=== PATIENT | male | born 1960 | race Caucasian/White ===

== ENCOUNTER 2020-08-13 07:09 | Observation (INO) | payer BC, MEDICARE ==
[2020-08-13 07:38] LABS: ABSOLUTE BASOPHILS # (AUTO) 0.2 10^3/uL (0.0-0.2); ABSOLUTE EOSINOPHILS # (AUTO) 0.2 10^3/uL (0.0-0.6); ABSOLUTE LYMPHOCYTES (AUTO) 3.1 10^3/uL (0.5-4.7); ABSOLUTE MONOCYTES (AUTO) 0.8 10^3/uL (0.1-1.4); ABSOLUTE NEUT (AUTO) 8.9 10^3/uL (1.7-8.2); BASOPHILS % (AUTO) 1.1 % (0-2); EOSINOPHILS % (AUTO) 1.7 % (0-6); HEMATOCRIT 44.9 % (37.9-51.0); HEMOGLOBIN 15.3 g/dL (13.5-17.0); LYMPHOCYTES % (AUTO) 23.6 % (13-45); MEAN CORPUSCULAR HEMOGLOBIN 30.8 pg (27.0-33.4); MEAN CORPUSCULAR HGB CONC 34.1 g/dL (32.0-36.0); MEAN CORPUSCULAR VOLUME 90 fl (80-97); MONOCYTES % (AUTO) 6.1 % (3-13); PLATELET COUNT 299 10^3/uL (150-450); RED BLOOD COUNT 4.97 10^6/uL (4.35-5.55); RED CELL DISTRIBUTION WIDTH 13.1 % (11.5-14.0); SEGMENTED NEUTROPHILS % (AUTO) 67.5 % (42-78); TOTAL CELLS COUNTED % (AUTO) 100 %; WHITE BLOOD COUNT 13.2 10^3/uL (4.0-10.5)
[2020-08-13 07:43] LABS: INTERNATIONAL RATION (INR) 0.87; PARTIAL THROMBOPLASTIN TIME 29.2 SEC (23.5-35.8)
--- NOTE | 2020-08-13 07:47 | ER Document Report ---
ED Alteplase Inc/Exc Criteria - Date/Time patient last known well: Date/Time: 720am - Inclusion Criteria: 1: Patient presented to ED within 4.5 hours of acute ischemic stroke symptom onset? -: No 2: Did baseline CT exclude intracranial hemorrhage and/or other risk factors? 3: Is the age of the patient 18 years of age or greater? : If any of the above questions are answered "NO" then stop, patient is not a candidate for Alteplase, : If all of the above questions are answered "YES" then continue with Exclusion Criteria. - Exclusion Criteria: 1: Is there evidence of intracranial hemorrhage on baseline CT? 2: Is there suspicion of subarachnoid hemorrhage (even if CT negative)? 3: Is there a history of serious head trauma, recent previous stroke or AR within 3 months? 4: Does the patient have a clinical presentation consistent with AR or post-AR pericarditis? 5: Is there history of intracranial hemorrhage? 6: On repeated measurement is Systolic BP greater than 185mmHg or Diastolic BP greater that 110 mmHg and is aggressive treatment needed to reduce blood pressure to these limits (e.g. constant infusion of an anti-hypertensive)? 7: Did the patient awake with stroke symptoms? 8: Has the patient had a lumbar puncture or an arterial puncture at a non- compressile site within 7 days? 9: With in the last 14 days did the patient have surgery or major trauma? 10: Is the patient or less than 2 weeks? 11: Was there any active bleeding or acute trauma? 12: Does the patient have intracranial neoplasm, arteriovenous malformation or aneurysm? 13: Does the patient have abnormal glucose (less than 50 or greater than 400mg/dl)? Record glucose in Comment. 14: Patient has rapidly improving symptoms at the time Alteplase is to be Administered. 15: Does the patient have any risks for bleeding, including but not limited to: a.: Current use of Coumadin with PT greater than 15 seconds or INR greater than 1.7. b.: Current use of Pradaxa (Dabigatran). c.: Heparin administereed within the past 48 hours and PTT elevated. d.: Platelet count less than 100,000/mm. e.: Major surgery or serious trauma within 14 days. f.: Gastrointestinal or gynecological urinary bleeding within 14 days. g.: Myocardial Infarction (AR) within 3 months. : If the answer to any of the above questions is "YES" then stop, the patient is not a candidate for Alteplase. : If the answer to all of the above questions is "NO" then the patient may be eligible for the Administration of Alteplase. : If the patient is noted to have seizure activity at onset of Stroke symptoms; Consult Neurologist for further evaluation. - The patient is: -: Included and is eligible to receive Alteplase. *Initiate bed placement at higher level of care* Reviewed risks & benefits of thrombolytic therapy: I have reviewed the risks and benefits of thrombolytic therapy with the patient and/or his/her family. -: Excluded and not eligible to receive Alteplase for the above exclusions. -: Excluded and not eligible to receive Alteplase for other reasons (specify in comments): - Diagnosis of TIA: -: Patient presented with transient symptoms that are now resolved and no other neurologic findings are currently present. List symptoms in comments. -: Patient is NOT a candidate for tPA. -: ____(put name in comment) has been consulted for admission and continued evaluation of risk factor assessment.
--- NOTE | 2020-08-13 07:47 | ER Document Report ---
ED NIH Stroke Scale - NIH Stroke Scale When completed:: Before Alteplase *: 1. NIH scale should be completed with appropriate accompanying assessment tools. *: 2. The NIH should reflect what the patient is capable of doing and should not be coached by the clinician. 1a. Level of Consciousness: 0=Alert;keenly responsive -: 1=Drowsy -: 2=Obtunded -: 3=Coma/unresponsive or reflex to noxious stimuli. 1a. Responses: 0 1b. Orientation Questions: a. What month is it? -: b. How old are you? -: 0=Answers both questions correctly. -: 1=Answers one question correctly or patient is intubated or has orotracheal trauma. -: 2=Answers neither question correctly. 1b. Responses: 0 1c. Response to commands: a. Open and close eyes? -: b. Therapeutic Massage Technician and release hand? -: Credit is given despite weakness. Demonstration of task is permitted. Substitute command if hands cannot be used. -: 0=Performs both tasks correctly -: 1=Performs one task correctly -: 2=Performs neither task correctly 1c. Responses: 0 2. Gaze: Establish eye contact and instruct patient to "Follow my finger" -: 0=Normal -: 1=Partial gaze palsy. Gaze is abnormal in one or both eyes, but where forced deviation or total gaze paresis is not present. -: 2=Forced deviation or total gaze paresis. 2. Responses: 0 3. Visual [place]: Sees fingers in all four quadrants. -: 0=No visual loss. -: 1=Partial hemianopsia. -: 2=Complete hemianopsia. -: 3=Bilateral hemianopsia (including Cortical blindness) 3. Responses: 0 4. Facial Movement: Instruct patient to: -: a. Show me your teeth -: b. Raise your eyebrows -: c. Close your eyes -: d. Smile -: 0=Normal symmetrical movement -: 1=Minor paralysis (flattened nasolabial fold, asymmetry on smiling). -: 2=Partial paralysis (total or near total paralysis of lower face). -: 3=Complete paralysis of upper and lower face 4. Responses: 0 5. Motor functions (left arm): Alternate sides and extend each arm with palms down (90 degrees if sitting or 45 degrees for supine). -: 0=No drift;limb holds for full 10 seconds. -: 1=Drift; limb holds but drifts down before full 10 seconds, but does not hit bed. -: 2=Some effort against gravity; limb cannot get to or maintain position. -: 3=No effort against gravity; limb falls. -: 4=No movement. -: UN=Amputation, joint fusion, explain in comments. 5. Responses (left arm): 1 5. Motor Functions (right arm): Alternate sides and extend each arm with palms down (90 degrees if sitting or 45 degrees for supine). -: 0=No drift;limb holds for full 10 seconds. -: 1=Drift; limb holds but drifts down before full 10 seconds, but does not hit bed. -: 2=Some effort against gravity; limb cannot get to or maintain position. -: 3=No effort against gravity; limb falls. -: 4=No movement. -: UN=Amputation, joint fusion, explain in comments. 5. Responses (right arm): 0 6. Motor Functions (left leg): With patient lying supine, alternate sides and extend each leg (30 degrees always while supine). -: 0=No drift, leg holds position for full 5 seconds -: 1=Drift; leg falls before full 5 seconds but does not hit bed. -: 2=Some effort against gravity, leg falls to bed but some effort against gravity. -: 3=No effort against gravity, leg falls to bed immediately. -: 4=No movement. -: UN=Amputation, joint fusion; explain in comments. 6. Responses (left leg): 1 6. Motor Functions (right leg): With patient lying supine, alternate sides and extend each leg (30 degrees always while supine). -: 0=No drift, leg holds position for full 5 seconds -: 1=Drift; leg falls before full 5 seconds but does not hit bed. -: 2=Some effort against gravity, leg falls to bed but some effort against gravity. -: 3=No effort against gravity, leg falls to bed immediately. -: 4=No movement. -: UN=Amputation, joint fusion; explain in comments. 6. Responses (right leg): 0 7. Limb Ataxia: With eyes open instruct patient to: -: a. "Touch your finger to your nose". -: b. "Touch your heel to your carlos" -: 0=Absent -: 1=Present in one limb. -: 2=Present in two limbs. -: UN=Amputation or joint fusion; explain in comments. 7. Responses: 1 7. If ataxia present choose as appropriate: Left arm 8. Sensory: Test sensation using pinprick or noxious stimuli. Test as many body parts as possible. -: 0=Normal;no sensory loss -: 1=Mile to moderate sensory loss (patient feels pin prick but is less sharp on affected side). -: 2=Severe or total sensory loss. 8. Responses: 0 9. Best Language: Instruct patient to: -: a. "Describe what you see in this picture." -: b. "Name the items in this picture." -: c. "Read these sentences." -: 0=No aphasia, normal -: 1=Mild to moderate aphasia. -: 2=Severe aphasia -: 3=Mute, global aphasia, no usable speech or auditory comprehension. 9. Responses: 0 10. Articulation, Dysarthia: Instruct patient to: -: "Read these words" or "Repeat these words" -: 0=Normal -: 1=Mild to moderate; patient may slur some words but can be understood without difficulty. -: 2=Severe; patients speech so slurred as to be unintelligible in the absence of dysphasia. -: UN=Intubated or other physical barrier, explain in comments. 10. Responses: 0 11. Extinction or inattention: 0=No abnormality -: 1= Visual, tactile, auditory, spatial, or personal inattention or extinction to bilateral simulation in one or the sensory modalities. -: 2=Profound dlemy-inattention or delmy-inattention to more than one modality; does not recognize own hand. 11. Responses: 0 Total Score: 3
--- NOTE | 2020-08-13 07:50 | ER Document Report ---
ED Dizziness/Weakness - General Chief Complaint: Dizziness Stated Complaint: DIZZINESS Time Seen by Provider: 08/13/20 07:21 Mode of Arrival: Wheelchair Information source: Patient - HPI Notes: Patient arrives by private auto from home. 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 Patient states that he went to bed approximately 9 PM last night. At that time he was normal. His is in the room and does verify this. This morning when he woke up he was weak on the left side and fell 3 times. There is been no trouble speaking or swallowing. No vision changes. He denies any pain. No abnormal sensations. No confusion. No recent trauma fevers. - Related Data Allergies/Adverse Reactions: Penicillins Allergy (Unverified 11/20/10 13:28) Past Medical History - General Information source: Patient, Relative - - Social History Smoking Status: Current Every Day Smoker Frequency of alcohol use: Occasional Drug Abuse: None Family History: Reviewed & Not Pertinent - Past Medical History Cardiac Medical History: Denies: Hx Coronary Artery Disease, Hx Heart Attack, Hx Hypertension Pulmonary Medical History: Denies: Hx Asthma, Hx Bronchitis, Hx COPD, Hx Pneumonia Neurological Medical History: Denies: Hx Cerebrovascular Accident, Hx Seizures Musculoskeletal Medical History: Reports Hx Arthritis Past Surgical History: Denies: Hx Pacemaker Review of Systems - Review of Systems Constitutional: denies: Chills, Fever Cardiovascular: denies: Chest pain, Palpitations Respiratory: denies: Cough, Short of breath -: Yes All other systems reviewed and negative Physical Exam - Vital signs Vitals: Resp Pulse Ox 23 H 100 08/13/20 07:20 08/13/20 07:20 Interpretation: Normal - General General appearance: Appears well, Alert - HEENT Head: Normocephalic, Atraumatic Eyes: Normal Pupils: PERRL - Respiratory Respiratory status: No respiratory distress Chest status: Nontender Breath sounds: Normal Chest palpation: Normal - Cardiovascular Rhythm: Regular Heart sounds: Normal auscultation Murmur: No - Abdominal Inspection: Normal Distension: No distension Bowel sounds: Normal Tenderness: Nontender Organomegaly: No organomegaly - Back Back: Normal, Nontender - Extremities General upper extremity: Normal inspection, Nontender, Normal color, Normal ROM, Normal temperature General lower extremity: Normal inspection, Nontender, Normal color, Normal ROM, Normal temperature, Normal weight bearing. No: Damien's sign - Neurological Neuro grossly intact: Yes Cognition: Normal Orientation: AAOx4 Huber Coma Scale Eye Opening: Spontaneous [place] Coma Scale Verbal: Oriented Huber Coma Scale Motor: Obeys Commands [place] Coma Scale Total: 15 Speech: Normal Motor strength normal: RUE, RLE - Psychological Associated symptoms: Normal affect, Normal mood - Skin Skin Temperature: Warm Skin Moisture: Dry Skin Color: Normal Course - Re-evaluation Re-evalutation: 08/13/20 08:56 Patient presents with woke up strokelike symptoms. He has left arm and leg weakness with some ataxia and balance problems as well. Plain head CT shows no evidence of stroke. It does show some equivocal findings for possible shunt malfunction. However patient has no headache. I did call and discussed the case with the neurologist at [facility]. He does not feel that the patient's presentation is consistent with a shunt abnormality. He feels that the patient most likely has a stroke of some kind. Patient is outside of the window for TPA due to waking up with the symptoms. Patient has symptoms that are not consistent with large vessel occlusion as well, and this was discussed with the neurologist. The neurologist at [facility], Dr. Ceja, recommends admission here with MRI and CTA. - Vital Signs Vital signs: Temp Pulse Resp BP Pulse Ox 19 115/83 100 08/13/20 08:01 08/13/20 08:01 08/13/20 08:01 - Laboratory Results Result Diagrams: 08/13/20 07:29 08/13/20 07:29 Laboratory Results Interpreted: 08/13/20 08/13/20 07:29 07:29 WBC 13.2 H Absolute Neuts (auto) 8.9 H Sodium 136.4 L Glucose 243 H AST 14 L Alkaline Phosphatase 129 H Critical Laboratory Results Reviewed: No Critical Results - Radiology Results Critical Radiology Results Reviewed: No Critical Results - EKG Interpretation by Me EKG shows normal: Sinus rhythm Rate: Normal - 85 Rhythm: NSR [place]/QRS: No: Right axis deviation, Left axis deviation Critical Care Note - Critical Care Note Total time excluding time spent on procedures (mins): 50 Comments: Approximately 50 minutes of critical care time were spent on this patient with acute CVA symptoms. This time is spent doing multiple reassessments. It is spent talking with multiple consultants. It was spent reviewing imaging and laboratory values. Discharge - Discharge Clinical Impression: CVA (cerebral vascular accident) Qualifiers: CVA mechanism: occlusion Precerebral and cerebral artery: unspecified precerebral artery Qualified Code(s): I63.20 - Cerebral infarction due to unspecified occlusion or stenosis of unspecified precerebral arteries Condition: Serious Disposition: ADMITTED INPATIENT Admitting Provider: Jessie (Hospitalist) Unit Admitted: [facility]
[2020-08-13 07:55] LABS: ALBUMIN 4.1 g/dL (3.5-5.0); ALKALINE PHOSPHATASE 129 U/L (38-126); ANION GAP 6 (5-19); ASPARTATE AMINO TRANSFERASE 14 U/L (17-59); BILIRUBIN,DIRECT 0.2 mg/dL (0.0-0.4); BILIRUBIN,TOTAL 0.6 mg/dL (0.2-1.3); BLOOD UREA NITROGEN 11 mg/dL (7-20); CALCIUM 9.7 mg/dL (8.4-10.2); CARBON DIOXIDE 28 mmol/L (22-30); CHLORIDE 102 mmol/L (98-107); GLUCOSE 243 mg/dL (75-110); POTASSIUM 4.4 mmol/L (3.6-5.0); TOTAL PROTEIN 6.9 g/dL (6.3-8.2)
--- NOTE | 2020-08-13 08:27 | RADIOLOGY REPORT (SQ) ---
EXAM DESCRIPTION: CT HEAD WITHOUT IMAGES COMPLETED DATE/TIME: 08/13/2020 7:52 am REASON FOR STUDY: left side weak COMPARISON: None. TECHNIQUE: Axial images acquired through the brain without intravenous contrast. Images reviewed wi bone, brain and subdural windows. Images stored on PACS. All CT scanners at this facility use dose modulation, iterative reconstruction, and/or weight based d osing when appropriate to reduce radiation dose to as low as reasonably achievable (ALARA). [facility]: Dose Right [facility]: CareDose [facility]: Dose Right [facility]: Teradose 4D [facility]: [employer] RADIATION DOSE: CT Rad equipment meets quality standard of care and radiation dose reduction techniq ues were employed. CTDIvol: 53.2 mGy. DLP: 1044 mGy-cm. mGy. LIMITATIONS: None. FINDINGS: VENTRICLES: The 3rd ventricle appears mildly distended. No evidence of transependymal dada w. CEREBRUM: Right frontoparietal ventricular shunt traverses the right frontal lobe with surrounding en cephalomalacia, and terminates in the midline in the region of the 3rd ventricle. Otherwise normal gr ay- white matter differentiation and attenuation. No hemorrhage. No mass. CEREBELLUM: No masses. No hemorrhage. No alteration of density. No evidence for acute infarction. EXTRAAXIAL SPACES: No fluid collections. No masses. ORBITS AND GLOBE: No intra- or extraconal masses. Normal contour of globe without masses. CALVARIUM: Right frontoparietal craniotomy without evidence of hardware complication. No acute findi ngs. PARANASAL SINUSES: No fluid or mucosal thickening. SOFT TISSUES: No mass or hematoma. OTHER: No other significant finding. IMPRESSION: Right frontoparietal ventricular shunt noting right frontal lobe encephalomalacia along the shunt tubing and a mildly prominent 3rd ventricle without evidence of transependymal flow. In th e absence of comparison imaging, the chronicity and stability of these findings remains indeterminate . EVIDENCE OF ACUTE STROKE: NO. COMMENT: Quality ID # [id number]: Final reports with documentation of one or more dose reduction techniques (e.g., Automated exposure control, adjustment of the mA and/or kV according to patient size, use of iterative reconstruction technique) TECHNICAL DOCUMENTATION: JOB ID: [id number] 2010 [employer]- All Rights Reserved Reading location - IP/workstation name: [email or web address]
[2020-08-13] MEDS ORDERED: IPRATROPIUM/ALBUTEROL 0.5-2.5 MG/3 ML AMPUL NEB PRN (10:01)
[2020-08-13] MEDS ORDERED: ONDANSETRON 4 MG TAB.RAPDIS PO PRN (10:01)
[2020-08-13] MEDS ORDERED: OXYCODONE-ACETAMINOPHEN 5-325 MG TABLET PO PRN (10:01)
[2020-08-13] MEDS ORDERED: ACETAMINOPHEN 325 MG TABLET PO PRN (10:01)
[2020-08-13] MEDS ORDERED: MAGNESIUM HYDROXIDE SUSP 30 ML UDCUP PO PRN (10:01)
--- NOTE | 2020-08-13 10:14 | PDOC H&P ---
History of Present Illness Admission Date/PCP: 08/13/20 09:15 Patient complains of: Patient initially presented to the emergency room this morning brought by his . He apparently complained of weakness of the left upper and lower extremity. He actually fell a couple of times. He was admitted for further evaluation and management for possible acute CVA. History of Present Illness: JUDY MERCADO is a 59 year old male Patient presented with above symptoms. By the time I was called he was felt that patient symptoms were outside the thrombolytic window as he had going to date last night in his usual condition and woke up this morning with the symptoms. Exact time of the onset was unknown however patient was also improving. In fact when I saw the patient the told me that he definitely was better than it was early on in the day. CT scan done shows a right frontoparietal ventricular shunt with the mildly prominent third ventricle without evidence of transependymal flow. 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 There has been no prior history of shunt infection. There was no report of difficulty speaking or swallowing, no vision changes at the most prominent symptom he had was weakness on the left side with unsteady gait when he ambulated. The ED doctor discussed with the neurologist at [facility] who suggested admission here as patient appears to be out of the TPA window. Patient is being admitted for further work-up and evaluation including CTA as well as echocardiogram Past Medical History Cardiac Medical History: Denies: Coronary Artery Disease, Myocardial Infarction, Hypertension Pulmonary Medical History: Denies: Asthma, Bronchitis, Chronic Obstructive Pulmonary Disease (COPD), Pneumonia Neurological Medical History: Reports: Other - Choroidal Cyst Denies: Seizures Musculoskeltal Medical History: Reports: Arthritis Hematology: Denies: Anemia Past Surgical History Past Surgical History: Reports: Other - Ventricular shunt Denies: Pacemaker Social History Information Source: Relative Smoking Status: Current Every Day Smoker Frequency of Alcohol Use: Rare - Advance Directive Resuscitation Status: Do Not Resuscitate - As per discussion with Myra Family History Family History: Reviewed & Not Pertinent Parental Family History Reviewed: Yes Children Family History Reviewed: Yes Sibling(s) Family History Reviewed.: Yes Medication/Allergy Home Medications: No Home Medications 08/13/20 Allergies/Adverse Reactions: Penicillins Allergy (Verified 08/13/20 09:38) Review of Systems All systems: reviewed and no additional remarkable complaints except as stated Constitutional: PRESENT: weakness. ABSENT: chills, fatigue, fever(s) Eyes: ABSENT: visual disturbances Ears: ABSENT: hearing changes Nose, Mouth, and Throat: ABSENT: mouth pain Gastrointestinal: ABSENT: abdominal pain, heartburn, nausea, vomiting Genitourinary: ABSENT: difficulty urinating Musculoskeletal: ABSENT: muscle weakness Neurological: PRESENT: abnormal gait, focal weakness, memory loss. ABSENT: abnormal speech, confusion, syncope Psychiatric: ABSENT: anxiety, depression, homidical ideation, suicidal ideation Physical Exam Vital Signs: Temp Pulse Resp BP Pulse Ox 69 17 118/88 H 100 08/13/20 09:32 08/13/20 09:32 08/13/20 09:32 08/13/20 09:32 Intake & Output 08/12/20 08/13/20 08/14/20 06:59 06:59 06:59 Weight 78.9 kg General appearance: PRESENT: no acute distress, well-developed, well-nourished Head exam: PRESENT: atraumatic, normocephalic Eye exam: PRESENT: conjunctiva pink, EOMI, PERRLA. ABSENT: scleral icterus Mouth exam: PRESENT: moist, tongue midline Neck exam: ABSENT: carotid bruit, JVD, lymphadenopathy, thyromegaly Respiratory exam: PRESENT: clear to auscultation marisa. ABSENT: rales, rhonchi, wheezes Cardiovascular exam: PRESENT: RRR, +S1, +S2. ABSENT: diastolic murmur, rubs, systolic murmur Pulses: PRESENT: normal dorsalis pedis pul Vascular exam: PRESENT: normal capillary refill GI/Abdominal exam: PRESENT: normal bowel sounds, soft. ABSENT: distended, guarding, mass, organolmegaly, rebound, tenderness Rectal exam: PRESENT: deferred Extremities exam: PRESENT: full ROM. ABSENT: calf tenderness, clubbing, pedal edema Neurological exam: PRESENT: alert, awake, oriented to person, oriented to place, oriented to time, oriented to situation, abnormal gait, other - LUE strength 3/5. ABSENT: motor sensory deficit Psychiatric exam: PRESENT: appropriate affect, normal mood. ABSENT: homicidal ideation, suicidal ideation Skin exam: PRESENT: dry, intact, warm. ABSENT: cyanosis, rash Results Laboratory Results: 08/13/20 07:29 08/13/20 07:29 08/13/20 08/13/20 07:29 07:29 WBC 13.2 H RBC 4.97 Hgb 15.3 Hct 44.9 MCV 90 MCH 30.8 MCHC 34.1 RDW 13.1 Plt Count 299 Seg Neutrophils % 67.5 Sodium 136.4 L Potassium 4.4 Chloride 102 Carbon Dioxide 28 Anion Gap 6 BUN 11 Creatinine 0.74 Est GFR ( Amer) > 60 Glucose 243 H Calcium 9.7 Total Bilirubin 0.6 AST 14 L Alkaline Phosphatase 129 H Total Protein 6.9 Albumin 4.1 08/13/20 07:29 Troponin I < 0.012 Impressions: Head CT 08/13/20 07:21 IMPRESSION: Right frontoparietal ventricular shunt noting right frontal lobe encephalomalacia along the shunt tubing and a mildly prominent 3rd ventricle without evidence of transependymal flow. In the absence of comparison imaging, the chronicity and stability of these findings remains indeterminate. EVIDENCE OF ACUTE STROKE: NO. Assessment and Plan - Diagnosis (1) CVA (cerebral vascular accident) Qualifiers: CVA mechanism: occlusion Precerebral and cerebral artery: unspecified precerebral artery Qualified Code(s): I63.20 - Cerebral infarction due to unspecified occlusion or stenosis of unspecified precerebral arteries Is this a current diagnosis for this admission?: Yes Plan: Patient presents with symptoms consistent with acute CVA. He has some mild left upper extremity weakness otherwise no acute deficits. His symptoms apparently have improved since his been in the emergency room. He does have a history of underlying BOX STACKER shunt. There is no history of hypertension. Patient does smoke about a pack a day for 40 years. There is no prior history of CVA it appears the neurologist at [facility] was consulted and suggestion is for him to be admitted to this hospital. At this time patient will be admitted to telemetry floor, [facility]. Because he has a shunt in place MRI was not obtained. Echocardiogram has been scheduled. A CTA has also been ordered as well as speech, physical and Occupational Therapy. Patient has been placed on aspirin as well as statin. For the interventions will depend on ultimate findings - Time Time Spent with patient: 25-34 minutes Medications reviewed and adjusted accordingly: Yes Anticipated Discharge Disposition: Home, Self Care Anticipated Discharge Timeframe: within 48 hours
--- NOTE | 2020-08-13 10:18 | RADIOLOGY REPORT (SQ) ---
EXAM DESCRIPTION: CTA NECK; CTA HEAD IMAGES COMPLETED DATE/TIME: 08/13/2020 9:22 am REASON FOR STUDY: left sided weakness COMPARISON: CT brain stroke alert 0741 hours, 08/13/2020 TECHNIQUE: Axial dynamic scanning technique with dynamic contrast enhancement through the extra-bridge crane operator nial carotid and vertebral arteries. Multiplanar reconstruction. 3-D MIPS and Volume-rendered imag es acquired at the workstation and saved to PACS. Images are reviewed in soft tissue, bone, lung w indows. Axial dynamic scanning technique with dynamic contrast enhancement through the intra-cranial carotid and vertebral arteries. Multiplanar reconstruction. 3-D MIPS and Volume-rendered images acquired at the workstation and saved to PACS. Images are reviewed in soft tissue, bone, lung windows. All CT scanners at this facility use dose modulation, iterative reconstruction, and/or weight based d osing when appropriate to reduce radiation dose to as low as reasonably achievable (ALARA). [facility]: Dose Right [facility]: CareDose [facility]: Dose Right [facility]: Teradose 4D [facility]: TeamLINKS CONTRAST TYPE AND DOSE: contrast/concentration: Isovue 350.00 mmol/ml; Total Contrast Delivered: 70. 0 ml; Total Saline Delivered: 75.0 ml RENAL FUNCTION: Creatinine 0.74 LIMITATIONS: None. FINDINGS: AORTIC ARCH: Normal three-vessel origin. Bilateral subclavian arteries are patent. No d issection. RIGHT CAROTIDS: Patent right common carotid artery. At the right carotid bifurcation, the internal carotid artery is occluded. No contrast enhancement o f the right cervical internal carotid artery or ICA at the skullbase. These findings are best shown on axial images 58-63 and sagittal images 23-25. Right external carotid artery branches are patent. RIGHT VERTEBRAL: Patent. No dissection. LEFT CAROTIDS: Patent common, internal and external carotid arteries. There is mixed calcific and no ncalcific plaque at the left carotid bifurcation with less than 50% stenosis proximal left ICA. . N o dissection. LEFT VERTEBRAL: Patent. No dissection. [place]: There is contrast enhancement of the right para clinoid ICA likely due to collatera l flow from the anterior communicating and posterior communicating arteries. No gross [place] stenosis, vascular malformation, or aneurysm OTHER: 3-D reconstructions confirm findings. OTHER HEAD AND NECK FINDINGS: Right frontal intraventricular drainage catheter with old frontal cran iotomy. Stable right frontal white matter low attenuation from gliosis. Enlarged heterogeneous thyr oid gland. No cervical adenopathy. Lung apices clear. Results called to Dr. 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 Cervical right ICA occluded wit h flow in the intracranial paraclinoid ICA from collateral flow. Findings called to the emergency ro om physician as above. About 50% proximal left ICA stenosis from calcific and noncalcific plaque No [place] stenosis or vascular malformation/aneurysm Right frontal craniotomy with ventricular drainage catheter and low attenuation in the frontal lobe w sharda matter and. COMMENT: Quality ID #195: Measurements of distal internal carotid diameter were used as the denomina tor for stenosis measurement. TECHNICAL DOCUMENTATION: JOB ID: [id number] Quality ID # 436: Final reports with documentation of one or more dose reduction techniques (e.g., Au tomated exposure control, adjustment of the mA and/or kV according to patient size, use of iterative reconstruction technique) 2010 [employer]- All Rights Reserved Reading location - IP/workstation name: [id number]
--- NOTE | 2020-08-13 10:18 | RADIOLOGY REPORT (SQ) ---
EXAM DESCRIPTION: CTA NECK; CTA HEAD IMAGES COMPLETED DATE/TIME: 08/13/2020 9:22 am REASON FOR STUDY: left sided weakness COMPARISON: CT brain stroke alert 0741 hours, 08/13/2020 TECHNIQUE: Axial dynamic scanning technique with dynamic contrast enhancement through the extra-armament aircraft mechanic nial carotid and vertebral arteries. Multiplanar reconstruction. 3-D MIPS and Volume-rendered imag es acquired at the workstation and saved to PACS. Images are reviewed in soft tissue, bone, lung w indows. Axial dynamic scanning technique with dynamic contrast enhancement through the intra-cranial carotid and vertebral arteries. Multiplanar reconstruction. 3-D MIPS and Volume-rendered images acquired at the workstation and saved to PACS. Images are reviewed in soft tissue, bone, lung windows. All CT scanners at this facility use dose modulation, iterative reconstruction, and/or weight based d osing when appropriate to reduce radiation dose to as low as reasonably achievable (ALARA). [facility]: Dose Right [facility]: CareDose [facility]: Dose Right [facility]: Teradose 4D [facility]: [email or web address] CONTRAST TYPE AND DOSE: contrast/concentration: Isovue 350.00 mmol/ml; Total Contrast Delivered: 70. 0 ml; Total Saline Delivered: 75.0 ml RENAL FUNCTION: Creatinine 0.74 LIMITATIONS: None. FINDINGS: AORTIC ARCH: Normal three-vessel origin. Bilateral subclavian arteries are patent. No d issection. RIGHT CAROTIDS: Patent right common carotid artery. At the right carotid bifurcation, the internal carotid artery is occluded. No contrast enhancement o f the right cervical internal carotid artery or ICA at the skullbase. These findings are best shown on axial images 58-63 and sagittal images 23-25. Right external carotid artery branches are patent. RIGHT VERTEBRAL: Patent. No dissection. LEFT CAROTIDS: Patent common, internal and external carotid arteries. There is mixed calcific and no ncalcific plaque at the left carotid bifurcation with less than 50% stenosis proximal left ICA. . N o dissection. LEFT VERTEBRAL: Patent. No dissection. [place]: There is contrast enhancement of the right para clinoid ICA likely due to collatera l flow from the anterior communicating and posterior communicating arteries. No gross [place] stenosis, vascular malformation, or aneurysm OTHER: 3-D reconstructions confirm findings. OTHER HEAD AND NECK FINDINGS: Right frontal intraventricular drainage catheter with old frontal cran iotomy. Stable right frontal white matter low attenuation from gliosis. Enlarged heterogeneous thyr oid gland. No cervical adenopathy. Lung apices clear. Results called to Dr. 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 Cervical right ICA occluded wit h flow in the intracranial paraclinoid ICA from collateral flow. Findings called to the emergency ro om physician as above. About 50% proximal left ICA stenosis from calcific and noncalcific plaque No [place] stenosis or vascular malformation/aneurysm Right frontal craniotomy with ventricular drainage catheter and low attenuation in the frontal lobe w sharda matter and. COMMENT: Quality ID #195: Measurements of distal internal carotid diameter were used as the denomina tor for stenosis measurement. TECHNICAL DOCUMENTATION: JOB ID: [id number] Quality ID # 436: Final reports with documentation of one or more dose reduction techniques (e.g., Au tomated exposure control, adjustment of the mA and/or kV according to patient size, use of iterative reconstruction technique) 2010 [employer]- All Rights Reserved Reading location - IP/workstation name: [id number]
[2020-08-13] MEDS ORDERED: ENOXAPARIN SODIUM INJ 40 MG/0.4 ML DISP.SYRIN SUBCUT SCH (11:00)
[2020-08-13] MEDS ORDERED: ASPIRIN 81 MG TABLET, ENT COATED PO SCH (11:00)
[2020-08-13] MEDS ORDERED: DOCUSATE SODIUM 100 MG CAPSULE PO SCH (11:00)
--- NOTE | 2020-08-13 12:27 | EKG REPORT ---
SEVERITY:- BORDERLINE ECG - SINUS RHYTHM PROBABLE LEFT ATRIAL ABNORMALITY : Confirmed by: Agustín Nuñez MD 13-Aug-2020 12:26:46
[2020-08-13 12:35] VITALS: BP 140/94
--- NOTE | 2020-08-13 15:37 | XCELERA REPORT ---
[address] [address] Transthoracic Echocardiogram Report Name: JUDY MERCADO Age: 59 yrs Gender: Male : 1960 Patient Status: Inpatient Patient Location: [place] [address]^A Study Date: 08/13/2020 11:18 AM Height: 70 in Weight: 173 lb BSA: 2.0 m2 Procedure: A complete two-dimensional transthoracic echocardiogram was performed (2D, M-mode, spectral and color flow Doppler). Reason For Study: Acute CVA Ordering Physician: ANGELA WHITLEY Performed By: Trinidad Marrufo Interpretation Summary LEFT VENTRICLE: LV Systolic function: LVEF is felt to be within normal limits. Best estimate is approximately LVEF is 60 to 65%. LV Diastolic Function: Grade II diastolic dysfunction noted. Wall motion: No definite regional wall motion abnormalities are noted. Left ventricular chamber size: is within normal limit. Left ventricular wall thickness: is increased indicative of Mild LVH. RIGHT VENTRICLE: RV systolic function: is felt to be within normal limit. Right Ventricle Size: is within normal limits. LEFT ATRIUM size: wnl. RIGHT ATRIUM size: is within normal limit. INTER ATRIAL SEPTUM: No definite atrial septal defect noted however a small PFO could be missed. AORTIC ROOT: seems to be within normal limits. ASCENDING AORTA: is not well visualized. INFERIOR VENA CAVA: WNL VALVES: MITRAL VALVE: Leaflets are mildly thickened. Mobility seems to be within normal limits. Mitral Regurgitation: Trace mitral regurgitation is noted. Mitral Stenosis: No mitral stenosis noted. Mitral valve prolapse: none noted. AORTIC VALVE: seems to be trileaflet with mild thickening but adequate excursion. Aortic stenosis: No aortic stenosis noted. Aortic regurgitation: No aortic incompetence noted. TRICUSPID VALVE: mobility and structures within normal limit. Tricuspid stenosis: no tricuspid stenosis noted. Tricuspid regurgitation: Trace tricuspid regurgitation noted. Estimated RVSP: cannot be accurately commented upon but possibly at upper limit of normal. PULMONARY VALVE: was not well visualized but no significant abnormalities suspected. Pulmonary stenosis: no pulmonary stenosis noted. Pulmonary regurgitation: no significant pulmonary regurgitation noted. MASSES AND THROMBUS: No definite intracardiac thrombus or masses are noted. PERICARDIUM: No pericardial effusion was noted. IMPRESSION: 1. Normal LVEF. 2. Mild LVH noted. 3. Grade II [mild] Diastolic Dysfunction noted. 4. No significant valvular stenosis or regurgitation noted. 5. Low probability of cardiac source of CVA. May consider transoesophageal echocardiogram if clinical suspicion is high. Will also recommend cardiac event monitoring as an outpatient. MMode/2D Measurements & Calculations RVDd: 3.4 cm LVIDd: 4.9 cm FS: 44.0 % Ao root diam: 2.8 cm IVSd: 1.0 cm LVIDs: 2.8 cm EDV(Teich): 113.8 ml Ao root area: 6.4 cm2 LVPWd: 1.0 cm ESV(Teich): 28.3 ml LA dimension: 2.9 cm EF(Teich): 75.1 % Doppler Measurements & Calculations MV E max loli: MV P1/2t max loli: Ao V2 max: LV V1 max P.6 cm/sec 65.2 cm/sec 105.7 cm/sec 1.9 mmHg MV A max loli: MV P1/2t: 83.4 msec Ao max PG: LV V1 max: 73.3 cm/sec MVA(P1/2t): 2.6 cm2 4.5 mmHg 69.4 cm/sec MV E/A: 0.89 MV dec slope: 228.7 cm/sec2 MV dec time: 0.28 sec PA V2 max: MV P1/2t-pr_phl: 72.6 cm/sec 83.4 msec PA max P.1 mmHg : ANGELA WHITLEY Shyamal
--- NOTE | 2020-08-13 17:24 | Left Against Medical Advice ---
Against Medical Advice Admission Date/Time: 08/13/20 09:15 Primary Care Provider: Date of Patient Emigration: 08/13/20 - Diagnosis: (1) CVA (cerebral vascular accident) Is this a current diagnosis for this admission?: Yes - Summary: Summary: Please see Admission and Progress Notes as well. JUDY MERCADO is a 59 M, who LEFT AGAINST MEDICAL ADVICE. The Patient was admitted on 08/13/20 09:15. Patient spent a brief time on the medical unit. I was later called and informed that patient left AMA. He was not reevaluated by me
[2020-08-13] MEDS ORDERED: ATORVASTATIN CALCIUM 20 MG TABLET PO SCH (22:00)
[2020-08-14] MEDS ORDERED: INFLUENZA QUAD (6MOS+) 2020-21 VAC 0.5 ML SYR IM ONE (08:00)
== END 2020-08-13 13:11 | disposition left against medical advice (07) ==
LOC: ER 07:09 → INTOOBSV 09:15 → EH 09:15 → 3S 12:04
PROVIDERS: ADMIT Internal Medicine; ATTEND Internal Medicine
DX: I63.20 Cerebral infarction due to unspecified occlusion or stenosis of unspecified precerebral arteries (principal); G81.94 Hemiplegia, unspecified affecting left nondominant side; R41.3 Other amnesia; R27.0 Ataxia, unspecified; Z66 Do not resuscitate; F17.210 Nicotine dependence, cigarettes, uncomplicated; R29.703 NIHSS score 3; Z98.2 Presence of cerebrospinal fluid drainage device
CPT/HCPCS: 93005; 99285; 36415; 85025; 85610; 85730; 80053; 84484; 93306; 70450; 70496; 70498; 93010; G0378 ×2; A9270

== ENCOUNTER 2020-08-13 13:28 | Emergency (ER) | payer MEDICARE ==
--- NOTE | 2020-08-13 14:29 | ER Document Report ---
Doctor's Note Notes: 08/13/20 14:26 Patient presents back to the emergency department after leaving AGAINST MEDICAL ADVICE from his room upstairs. According to nursing staff when the patient's left he signed himself AMA. The is not with the patient and states that the patient wanted to go have a cigarette which is why he signed himself out AGAINST MEDICAL ADVICE. She states that the patient is not ready to go back upstairs and the patient states that he is in agreement with going back upstairs and being admitted. There was essentially no acute changes on my exam now compared to when he was seen in the emergency department earlier. Patient has some intermittent confusion but states that this is baseline and that he h as had intermittent confusion ever since he has had brain surgery several years ago. She states there is no change of his mentation compared to his baseline. He still does have some left-sided weakness however patient was able to ambulate on his own here in the emergency department and transferred himself from the wheelchair to the bed without a problem. He is pleasant and conversant. Heart is still regular rate and rhythm. Lungs are still clear to auscultation bilaterally. Skin is still warm and dry. Patient is currently waiting in the waiting room for a bed assignment. I have contacted the hospitalist and she is aware that the patient is here and is awaiting him to be transferred back to his room.
--- NOTE | 2020-08-13 14:44 | ER Document Report ---
Doctor's Note Notes: 08/13/20 1 Patient was waiting to go back upstairs when he began to have left facial droop and worsening left-sided weakness. He has been sent over again now for a repeat head CT and I have repaged the neurologist at [facility]. Patient remains flaccid on the left with left-sided facial droop currently. I called and discussed the case once again with the neurologist, Dr. Ceja, at [place]. He has asked that we send the patient by helicopter for possible thrombectomy. At this time helicopter transportation has been arranged. Patient initially was found to have occlusion of the right ICA however he had minor symptoms therefore the recommendation was not to proceed with interventional thrombectomy however now that the stroke symptoms have worsened this is a possibility per Dr. Ceja. 08/13/20 14:54
--- NOTE | 2020-08-13 14:59 | RADIOLOGY REPORT (SQ) ---
EXAM DESCRIPTION: CT HEAD WITHOUT IMAGES COMPLETED DATE/TIME: 08/13/2020 2:47 pm REASON FOR STUDY: left sided weakness COMPARISON: 08/13/2020 at 0741 hours. TECHNIQUE: Axial images acquired through the brain without intravenous contrast. Images reviewed wi th bone, brain and subdural windows. Additional sagittal and coronal reconstructions were generated. Images stored on PACS. All CT scanners at this facility use dose modulation, iterative reconstruction, and/or weight based d osing when appropriate to reduce radiation dose to as low as reasonably achievable (ALARA). [facility]: Dose Right [facility]: CareDose [facility]: Dose Right [facility]: Teradose 4D [facility]: [employer] RADIATION DOSE: CT Rad equipment meets quality standard of care and radiation dose reduction techniq ues were employed. CTDIvol: 53.2 mGy. DLP: 1097 mGy-cm. mGy. LIMITATIONS: None. FINDINGS: VENTRICLES: Shunt tubing entering the right frontal lobe and ending in the midline. Dilat ion of the 3rd ventricle. CEREBRUM: No masses. No hemorrhage. No midline shift. Decreased attenuation in the right frontal l obe. CEREBELLUM: No masses. No hemorrhage. No alteration of density. No evidence for acute infarction. EXTRAAXIAL SPACES: No fluid collections. No masses. ORBITS AND GLOBE: No intra- or extraconal masses. Normal contour of globe without masses. CALVARIUM: Right craniotomy. PARANASAL SINUSES: No fluid or mucosal thickening. SOFT TISSUES: No mass or hematoma. OTHER: No other significant finding. IMPRESSION: NO CHANGE. SURGICAL CHANGES AND SHUNT TUBING. EVIDENCE OF ACUTE STROKE: NO. COMMENT: Quality ID # 436: Final reports with documentation of one or more dose reduction techniques (e.g., Automated exposure control, adjustment of the mA and/or kV according to patient size, use of iterative reconstruction technique) TECHNICAL DOCUMENTATION: JOB ID: [id number] 2010 [employer]- All Rights Reserved Reading location - IP/workstation name: [id number]
[2020-08-13] MEDS ORDERED: LORAZEPAM INJ 2 MG/1 ML VIAL IV ONE (15:13)
[2020-08-13 16:13] VITALS: BP 139/65
== END 2020-08-13 15:20 | disposition short-term general hospital (02) ==
LOC: ER 13:28
DX: I65.21 Occlusion and stenosis of right carotid artery (principal); R29.810 Facial weakness; R53.1 Weakness; R41.0 Disorientation, unspecified; Z72.0 Tobacco use; Z98.890 Other specified postprocedural states
CPT/HCPCS: 36415; 84484; 70450; J2060